=== PATIENT | female | born 1975 | race African-American/Black ===

== ENCOUNTER 2021-03-13 21:13 | Emergency (ER) | payer OTHER ==
[~2021-03-13] VITALS: Ht 170.2 cm; Wt 64.0 kg
[~2021-03-13 21:13] MED LIST: IRON325 MG OR; NAPROSYN500 MG OR; NO HOME MEDS; ULTRAM50 M1 OR; ULTRAM50 MG OR
[2021-03-13 22:09] LABS: URINE BILIRUBIN - DIPSTICK NEGATIVE (NEGATIVE); URINE BLOOD DIPSTICK TRACE-INTACT (NEGATIVE); URINE COLOR YELLOW; URINE GLUCOSE - DIPSTICK NEGATIVE (NEGATIVE); URINE KETONE TRACE mg/dL (NEGATIVE); URINE LEUK ESTERASE NEGATIVE (NEGATIVE); URINE NITRITE - DIPSTICK NEGATIVE (Negative); URINE PH 6.5 (4.5-8.0); URINE PROTEIN - DIPSTICK TRACE mg/dL (NEG-TRACE); URINE UROBILINOGEN - DIPSTICK 0.2 E.U./dL (0.2)
[2021-03-13 22:23] LABS: ALKALINE PHOSPHATASE 61 u/l (38-126); ANION GAP 12 (6-22 (CALC)); BILIRUBIN, TOTAL 0.3 mg/dL (0.0-1.4); BUN 16 mg/dL (7-17); BUN/CREATININE RATIO 20 (12-20 (CALC)); CARBON DIOXIDE 26 mmol/l (22-30); CHLORIDE 103 mmol/l (95-108); CREATININE 0.8 mg/dL (0.5-1.0); ETHYL ALCOHOL 0 mg/dl (0-30); GFR > 60 ML/MIN (>=60 (CALC)); GFR FOR AFR.AMER. > 60 ML/MIN (>=60 (CALC)); POTASSIUM 3.5 mmol/l (3.5-5.1); SGOT/AST 26 u/l (14-36); SODIUM 136 mmol/l (137-146); TOTAL PROTEIN 7.3 g/dL (6.3-8.2)
[2021-03-13 22:27] LABS: HEMATOCRIT 37.1 % (37.0-47.0); HEMOGLOBIN 12.2 g/dl (12.0-16.0); IMMATURE GRANULOCYTES 0.5 % (0.0-5.0); MEAN CELL VOLUME 85.1 fL CALC (80.0-100.0); MEAN CORPUSCULAR HGB CONC 32.9 g/dL CAL (32.0-36.0); NEUT# 4.83 thou/uL (2.00-7.15); RED BLOOD COUNT 4.36 mill/uL (4.20-5.60); RED CELL DISTRI WIDTH 12.9 % (11.5-15.5)
[2021-03-13 23:31] VITALS: BP 141/91
== END 2021-03-13 23:36 | disposition home or self-care (01) | DRG 312 ==
LOC: ED 21:13
PROVIDERS: Emergency Medicine
DX: R55 Syncope and collapse (principal)

== ENCOUNTER 2022-12-10 06:45 | Day surgery (SDC) | payer OTHER ==
[~2022-12-10] VITALS: Ht 170.2 cm; Wt 64.9 kg
[~2022-12-10 06:45] MED LIST changes: +B121000 MC1; +BIOTIN10 M1; +CALCI23 PO; +FERRAPLUS 90 PO; +FISH OIL1000 MG PO; +VITAMI16 PO; +VITAMIN D PO
[2022-12-10 08:55] VITALS: BP 120/89
== END 2022-12-10 08:54 | disposition home or self-care (01) | DRG 951 ==
LOC: ENDO 06:45
PROVIDERS: ATTEND Surgery
PROC: 0DJD8ZZ Inspection of Lower Intestinal Tract, Via Natural or Artificial Opening Endoscopic (ICD-10-PCS; principal; 2022-12-10)
DX: Z12.11 Encounter for screening for malignant neoplasm of colon (principal); K64.8 Other hemorrhoids

== ENCOUNTER 2023-10-29 17:44 | Emergency (ER) | payer OTHER ==
[~2023-10-29] VITALS: Ht 170.2 cm; Wt 68.0 kg
[2023-10-29 18:28] VITALS: BP 155/86
== END 2023-10-29 18:38 | disposition left against medical advice (07) | DRG 951 ==
LOC: ED 17:44 → LWOBS 18:28
DX: Z53.21 Procedure and treatment not carried out due to patient leaving prior to being seen by health care provider (principal)